=== PATIENT | male | born 1955 | race African-American/Black ===

== ENCOUNTER 2020-08-15 21:18 | Inpatient (IN) | payer OTHER ==
[2020-08-15 22:38] VITALS: BMI 21.6
[2020-08-16] MEDS ORDERED: NALOXONE (NARCAN) HCL 4 MG/0.1 ML SPRAY NS PRN (01:30)
[2020-08-16] MEDS ORDERED: METHOCARBAMOL 500 MG TABLET PO PRN (01:30)
[2020-08-16] MEDS ORDERED: MENTHOL/PHENOL 1 EACH UD MM PRN (01:30)
[2020-08-16] MEDS ORDERED: ACETAMINOPHEN 325 MG TABLET (FP) PO PRN ×2 (01:30)
[2020-08-16] MEDS ORDERED: NICOTINE POLACRILEX 2 MG GUM BUC PRN (01:30)
[2020-08-16] MEDS ORDERED: MAG HYDROX/AL HYDROX/SIMETH 30 ML UNIT-DOSE CUP PO PRN (01:30)
[2020-08-16] MEDS ORDERED: MAGNESIUM CITRATE 300 ML BOTTLE PO PRN (01:30)
[2020-08-16] MEDS ORDERED: BISMUTH SUBSALICYLATE 524 MG/30 ML PO PRN (01:30)
[2020-08-16] MEDS ORDERED: MAGNESIUM HYDROX 2400MG/30ML ORAL SUSPENSION 30 ML CUP PO PRN (01:30)
[2020-08-16] MEDS ORDERED: ONDANSETRON *ODT* 4 MG TABLET SL PRN (01:30)
[2020-08-16] MEDS ORDERED: IBUPROFEN 400 MG TABLET (FP) PO PRN (01:30)
[2020-08-16] MEDS ORDERED: LORazepam 1 MG TABLET PO PRN (01:38)
[2020-08-16] MEDS: LORazepam 2 MG TABLET PO SCH ×4 (04:35→22:53)
[2020-08-16] MEDS: PRENATAL VITAMINS W/ FOLIC ACID TABLET (FP) PO SCH (10:55)
[2020-08-16] MEDS ORDERED: THIAMINE HCL 100 MG TABLET (FP) PO SCH (22:00)
[2020-08-16] MEDS ORDERED: MELATONIN 5 MG TABLETS PO SCH (22:00)
[2020-08-16] MEDS ORDERED: QUEtiapine FUMARATE 50 MG TABLET PO SCH (22:00)
[2020-08-16] MEDS ORDERED: MIRTAZAPINE 15 MG TABLET (FP) PO SCH (22:00)
[2020-08-17] MEDS: LORazepam 1 MG TABLET PO SCH ×2 (06:29→11:07)
[2020-08-17 10:04] LABS: CALCIUM 9.4 mg/dL (8.5-10.1)
[2020-08-17 10:05] LABS: ALBUMIN 3.7 g/dl (3.4-5.0); BLOOD UREA NITROGEN 10.6 mg/dL (7-18)
[2020-08-17 10:06] LABS: HEMATOCRIT 36.7 % (35.4-49); HEMOGLOBIN 12.7 GM/dL (11.7-16.9); MCH 34.2 pg (25.7-33.7); MCHC 34.4 g/dl (32.0-35.9); MEAN CELL VOLUME 99.3 fl (80-96); MEAN PLT VOLUME 8.9 fl (7.5-11.1); PLATELET COUNT 106 K/MM3 (134-434); RDW 14.5 % (11.9-15.9); WHITE BLOOD COUNT 3.5 K/mm3 (4.0-10.0)
[2020-08-17 10:08] LABS: CREATININE 0.7 mg/dL (0.55-1.3)
[2020-08-17 10:10] LABS: BILIRUBIN,TOTAL 0.7 mg/dL (0.2-1); TOT PROT 6.7 g/dl (6.4-8.2)
[2020-08-17 10:55] LABS: HIV INTERPRETATION NEGATIVE (NEGATIVE)
[2020-08-17] MEDS: PRENATAL VITAMINS W/ FOLIC ACID TABLET (FP) PO SCH (11:06)
[2020-08-17 18:25] VITALS: BP 119/95; PULSE 80; TEMP 97.8
[2020-08-18] MEDS ORDERED: LORazepam 0.5 MG TABLET PO PRN
[2020-08-18] MEDS ORDERED: LORazepam 0.5 MG TABLET PO SCH (05:00)
[2020-08-19] MEDS ORDERED: LORazepam 0.5 MG TABLET PO ONE (05:00)
== END 2020-08-17 18:32 | disposition left against medical advice (07) | DRG 770 ==
LOC: YASAS 21:18 → Y6N 08-16 02:58
PROVIDERS: ADMIT Allergy & Immunology; ATTEND Allergy & Immunology
PROC: HZ2ZZZZ Detoxification Services for Substance Abuse Treatment (ICD-10-PCS; principal; 2020-08-16)
DX: F10.230 Alcohol dependence with withdrawal, uncomplicated (principal); F11.20 Opioid dependence, uncomplicated; F17.210 Nicotine dependence, cigarettes, uncomplicated; F19.282 Other psychoactive substance dependence with psychoactive substance-induced sleep disorder; F10.282 Alcohol dependence with alcohol-induced sleep disorder; F10.280 Alcohol dependence with alcohol-induced anxiety disorder; F19.24 Other psychoactive substance dependence with psychoactive substance-induced mood disorder; F22 Delusional disorders; D69.6 Thrombocytopenia, unspecified; D72.829 Elevated white blood cell count, unspecified
CPT/HCPCS: 36415; 80053; 85027; 86593; 86780; 87389; 93005; 93010; C9803; U0003; U0005